=== PATIENT | male | born 2000 | race Asian ===

== ENCOUNTER 2019-08-28 23:41 | Emergency (ER) | payer BC ==
[2019-08-29] MEDS ORDERED: NS 0.9% 1000 ML** 2,000 ML IV ONE (00:19)
[2019-08-29] MEDS ORDERED: Ondansetron INJ* 2 MG/ML VIAL IV ONE (00:19)
--- NOTE | 2019-08-29 00:26 | ED ---
Substance Abuse/Use - HPI Summary HPI Summary: This patient is a 19 year old M [facility] accompanied by 2 female friends with a chief complaint of vomiting since around 1999 today 08/28/19. Symptoms aggravated by nothing. Symptoms alleviated by nothing. Patient reports drinking early today and stopped around 1400, took a nap at [id number], woke up nauseous and tried to eat around 1999 but could not keep anything down. Pt report after he ran out of stuff to throw up he started vomiting dark blood. Pt denies drinking more than usual today. Denies diarrhea, fever. Pt reports chills. Friend reports pt felt warm to the touch before he slept. Pt is taking cephalexin for acne. - History Of Current Complaint Chief Complaint: EDNauseaVomitDiarrh Stated Complaint: VOMITING PER PT Time Seen by Provider: 08/28/19 23:57 Hx Obtained From: Patient Aggravating Factor(s): Nothing Alleviating Factor(s): Nothing Associated Signs And Symptoms: Negative - Denies diarrhea, fever., Nausea, Vomiting - dark blood, Other: - chills - Allergies/Home Medications Allergies/Adverse Reactions: Allergies Allergy/AdvReac Type Severity Reaction Status Date / Time apple Allergy See Comment Verified 08/28/19 23:47 nut - unspecified Allergy See Comment Verified 08/28/19 23:47 pear Allergy See Comment Verified 08/28/19 23:47 Home Medications: Home Medications Cephalexin CAP* [Keflex CAP*] 500 mg PO EVERY OTHER DAY 08/29/19 [History Confirmed 08/29/19] PMH/Surg Hx/FS Hx/Imm Hx Endocrine/Hematology History: Denies: Hx Diabetes Cardiovascular History: Denies: Hx Hypertension - Surgical History Surgery Procedure, Year, and Place: none - Immunization History Immunizations Up to Date: Yes Infectious Disease History: No Infectious Disease History: Denies: Traveled Outside the [place] in Last 30 Days - Family History Known Family History: Positive: Diabetes, Other - Hep C - Social History Alcohol Use: Occasionally Hx Substance Use: No Substance Use Type: Reports: None Hx Tobacco Use: Yes Smoking Status (MU): Light Every Day Tobacco Smoker Review of Systems Positive: Fever, Chills Positive: Vomiting, Nausea. Negative: Diarrhea All Other Systems Reviewed And Are Negative: Yes Physical Exam - Summary Physical Exam Summary: Appearance: Well-appearing, Well-nourished, lying in bed comfortably Skin: Warm, dry, no obvious rash Eyes: sclera anicteric, no conjunctival pallor ENT: mucous membranes moist, pharynx appears normal Neck: Supple, nontender Respiratory: Clear to auscultation, no signs of respiratory distress Cardiovascular: Normal S1, S2. No murmurs. Normal distal pulses in tibial and radial bilaterally. Abdomen: Soft, nontender, normal active bowel sounds present Musculoskeletal: Normal, Strength/ROM Intact Neurological: A&Ox3, awake and alert, mentation is normal, speech is fluent and appropriate Psychiatric: affect is normal, does not appear anxious or depressed Triage Information Reviewed: Yes Vital Signs On Initial Exam: Initial Vitals Temp Pulse Resp BP Pulse Ox 98.1 F 89 15 130/105 97 08/28/19 23:43 08/28/19 23:43 08/28/19 23:43 08/28/19 23:43 08/28/19 23:43 Vital Signs Reviewed: Yes Procedures - Sedation Patient Received Moderate/Deep Sedation with Procedure: No Diagnostics - Vital Signs Vital Signs Temp Pulse Resp BP Pulse Ox 08/28/19 23:43 98.1 F 89 15 130/105 97 - Laboratory Lab Statement: Any lab studies that have been ordered have been reviewed, and results considered in the medical decision making process. Course/Dx - Course Course Of Treatment: This patient is a 19 year old M presenting to [facility] accompanied by 2 female friends with a chief complaint of vomiting since around 1999 today 08/28/19. Patient reports drinking early today and stopped around 1400 , took a nap at [id number], woke up nauseous and tried to eat around 1999 but could not keep anything down. Pt report after he ran out of stuff to throw up he started vomiting dark blood. Pt denies drinking more than usual today. Denies diarrhea, fever. Pt reports chills. Physical Exam Findings shows no abnormalities. In the ED course the patient was given 8 mg Ondansetron Hcl, saline. Patient will be discharged. The patient is agreeable with this plan. - Diagnoses Provider Diagnoses: Nausea & vomiting Discharge ED - Sign-Out/Discharge Documenting (check all that apply): Patient Departure - discharge - Discharge Plan Condition: Good Disposition: HOME Prescriptions: Ondansetron ODT TAB* [Zofran 4 MG Odt TAB*] 8 mg PO Q6H PRN #12 tab.odt PRN Reason: Nausea Patient Education Materials: Acute Nausea and Vomiting (ED) Referrals: [facility] [Outside] - 2 Days (if not better) - Billing Disposition and Condition Condition: GOOD Disposition: Home - Attestation Statements Document Initiated by Dixieibe: Yes Documenting Scribe: Toyin Felder Provider For Whom Tucker is Documenting (Include Credential): Dr. Kiran Bland MD Scribe Attestation: IToyin, scribed for Dr. Kiran Bland MD on 09/05/19 at 2356. Scribe Documentation Reviewed: Yes Provider Attestation: The documentation as recorded by the Toyin rodriguez accurately reflects the service I personally performed and the decisions made by me, Dr. Kiran Bland MD Status of Scribe Document: Viewed
[2019-08-29 02:38] VITALS: BP 128/76
== END 2019-08-29 02:20 | disposition home or self-care (01) ==
LOC: ED 23:41
DX: R11.2 Nausea with vomiting, unspecified (principal); R50.9 Fever, unspecified; Z91.018 Allergy to other foods; F17.200 Nicotine dependence, unspecified, uncomplicated
CPT/HCPCS: 96361; 96374; 99283; J2405